=== PATIENT | female | born 1970 | race Caucasian/White ===

== ENCOUNTER → 2017-01-02 | Day surgery (SDC) | payer OTHER | END | disposition home or self-care (01) | LOC: FAS 10:33 | DX: M23.221 Derangement of posterior horn of medial meniscus due to old tear or injury, right knee (principal); M25.861 Other specified joint disorders, right knee; M17.11 Unilateral primary osteoarthritis, right knee; M79.4 Hypertrophy of (infrapatellar) fat pad; I10 Essential (primary) hypertension; E28.2 Polycystic ovarian syndrome; F32.9 Major depressive disorder, single episode, unspecified; K21.9 Gastro-esophageal reflux disease without esophagitis; K64.9 Unspecified hemorrhoids; Z87.891 Personal history of nicotine dependence; Z98.51 Tubal ligation status; Z90.49 Acquired absence of other specified parts of digestive tract; Z88.0 Allergy status to penicillin; Z79.84 Long term (current) use of oral hypoglycemic drugs; Z79.82 Long term (current) use of aspirin; Z79.1 Long term (current) use of non-steroidal anti-inflammatories (NSAID); Z79.891 Long term (current) use of opiate analgesic; Z79.899 Other long term (current) drug therapy; Z98.890 Other specified postprocedural states | CPT/HCPCS: 84703; J1100; J1170; J1885; J2405; J2704; J3010 ==

== ENCOUNTER 2020-12-20 00:24 | Emergency (ER) | payer MEDICARE, OTHER ==
[~2020-12-20 00:24] MED LIST: ASPIRIN EC81 MG PO; AZELASTINE205.5 MCG/; B COMPLEX1 EACH PO; CHLORTHALIDONE25 MG PO; COZAAR100 MG PO; KEFLEX500 MG PO; MAG-OXIDE 400M400 MG PO; MEDROL 4MG DOSEP4 MG PO; METFORMIN HCL500 MG PO; MOBIC7.5 MG PO; PERCOCET 5-3251 EACH PO; PRILOSEC20 MG PO; PROZAC20 MG PO; SYNTHROID50 MCG PO; TOPROL XL 50 MG50 MG PO; VIBRAMYCIN100 MG PO; VITAMIN D35000 UNIT PO; WELLBUTRIN XL150 MG PO; ZYRTEC10 M3 PO
[2020-12-20 01:32] LABS: BASOPHIL 0.5 % (0-2); BILIRUBIN NEGATIVE (NEGATIVE); BLOOD NEGATIVE Ery/uL (NEGATIVE); CLARITY CLEAR (CLEAR); COLOR YELLOW (YELLOW); EOSINOPHIL 4.8 % (0-5); GLUCOSE (U) NORMAL (NORMAL); HCT 42.9 % (37.0-47.0); LEUKOCYTES NEGATIVE Leu/uL (NEGATIVE); LYMPHOCYTE 29.6 % (15-48); MCH 30.5 pg (25.0-31.0); MCHC 32.6 g/dL (32.0-36.0); MCV 93.5 fL (78.0-100.0); MONOCYTE 12.1 % (0-12); MPV 10.3 fL (6.0-9.5); NEUTROPHIL 52.6 % (41-80); NITRITE NEGATIVE (NEGATIVE); NRBC 0; PLT 220 K/uL (150-400); PROTEIN NEGATIVE (NEGATIVE); RBC 4.59 M/uL (4.20-5.40); RDW 15.2 % (11.5-14.0); SPECIFIC GRAVITY 1.025 (1.001-1.030); UROBILINOGEN 0.2 mg/dL (0.2-1.0); WBC 8.1 K/uL (4.0-10.5)
[2020-12-20 01:51] LABS: ALBUMIN 3.2 g/dL (3.4-5.0); BILIRUBIN - TOTAL 0.3 mg/dL (0.2-1.0); BUN/CREAT RATIO (CALC) 27.8 RATIO; CREATININE 1.08 mg/dL (0.51-0.95); GLOBULIN (CALCULATION) 3.4 g/dL; POTASSIUM 3.4 mmol/L (3.5-5.1); TOTAL PROTEIN 6.6 g/dL (6.4-8.2)
[2021-02-23] MEDS ORDERED: CELEBREX **OUT100 MG PO (15:23)
[2021-02-23] MEDS ORDERED: HYDROCODON-ACE1 EAC2 PO (15:24)
== END 2020-12-20 05:10 | disposition home or self-care (01) ==
LOC: FER 00:24
PROVIDERS: Emergency Medicine
DX: K76.89 Other specified diseases of liver (principal); I10 Essential (primary) hypertension; F17.200 Nicotine dependence, unspecified, uncomplicated
CPT/HCPCS: 36415; 80053; 81003; 83690; 85025; J7030; Q9967

== ENCOUNTER → 2021-02-28 | Day surgery (SDC) | payer MEDICARE, OTHER ==
[~2021-02-28] VITALS: Ht 175.3 cm; Wt 158.9 kg
[~2021-02-28] MED LIST changes: +CELEBREX **OUT100 MG PO; +HYDROCODON-ACE1 EAC2 PO
[2021-02-28 12:05] LABS: HCG (URINE) SCREEN NEGATIVE (NEGATIVE)
[2021-02-28 12:46] LABS: HGB 13.3 g/dl (12.5-16.0); MCH 31.1 pg (25.0-31.0); MCHC 32.4 g/dL (32.0-36.0); MPV 10.1 fL (6.0-9.5); RBC 4.27 M/uL (4.20-5.40); WBC 7.2 K/uL (4.0-10.5)
== END | disposition home or self-care (01) ==
LOC: FAS 11:33
PROVIDERS: Anesthesiology; Surgery
DX: K64.1 Second degree hemorrhoids (principal); K64.4 Residual hemorrhoidal skin tags; N31.9 Neuromuscular dysfunction of bladder, unspecified; K59.2 Neurogenic bowel, not elsewhere classified; E03.9 Hypothyroidism, unspecified; I87.2 Venous insufficiency (chronic) (peripheral); K21.9 Gastro-esophageal reflux disease without esophagitis; I10 Essential (primary) hypertension; F32.9 Major depressive disorder, single episode, unspecified; E66.01 Morbid (severe) obesity due to excess calories; G47.30 Sleep apnea, unspecified; F17.210 Nicotine dependence, cigarettes, uncomplicated; Z86.010 Personal history of colon polyps; Z68.43 Body mass index [BMI] 50.0-59.9, adult; Z99.89 Dependence on other enabling machines and devices; Z88.8 Allergy status to other drugs, medicaments and biological substances; Z79.82 Long term (current) use of aspirin; Z79.891 Long term (current) use of opiate analgesic; Z79.899 Other long term (current) drug therapy
CPT/HCPCS: 36415; 84703; J2250; J2704